=== PATIENT | female | born 1970 | race Caucasian/White ===

== ENCOUNTER 2018-03-21 14:00 | Emergency (ER) | payer OTHER ==
--- OUTSIDE RECORDS SUMMARY | 2018-03-21 14:05 | XMS REPORT | Continuity of Care Document ---
:1970 External Reference #:[id number] Author Name Manpreet Snyder MD Address [address] [place] [address] Care Team Providers Name Role Phone Emmett GOLDBERG, Sugar Care Team Information [employer] Unavailable Josiah Smith MD Primary Care Physician Unavailable Payers Type Date Identification Numbers Payment Provider Subscriber Policy Number: [id number] [employer] Dori Santamaria Group Number: [id number] Group Name: [id number] [place] [address] PayID: [id number] Advance Directives Description No Information Available Problems Date Description Provider Status Onset: 03/01/2018 Dizziness and giddiness Manpreet Snyder MD Active Onset: 03/01/2018 Tinnitus of right ear Manpreet Snyder MD Active Family History Date Family Member(s) Problem(s) Comments General Diabetes General Hearing Loss General Migraine General Thyroid Disease Father Diabetes Father Migraine Mother Diabetes Mother Hearing Loss Mother Thyroid Disease Social History Type Date Description Comments Sex Unknown Occupation Professor Tobacco Use Start: Unknown Never Smoked Cigarettes Tobacco Use Start: Unknown Never Smoked Cigars Tobacco Use Start: Unknown Never Smoked A Pipe Smokeless Tobacco Never Used Smokeless Tobacco ETOH Use Never consumed alcohol Allergies, Adverse Reactions, Alerts Description No Known Drug Allergies Medications Medication Date Status Form Strength Qnty SIG Indications Ordering Provider Doxycycline Active Tablets 100mg Josiah Smith MD Immunizations Description No Information Available Vital Signs Date Vital Result Comment 03/01/2018 2:32pm Weight 200.00 lb Weight 90.720 kg Height 67 inches 5'7" Height in cm's 170.2 cm BMI (Body Mass Index) 31.3 kg/m2 Results Description No Information Available Procedures Date Code Description Status 03/01/2018 49644 Tympanometry Completed 03/01/2018 47645 Comprehensive Audiogram Completed Encounters Type Date Location Provider Dx Diagnosis Office Visit 03/01/2018 [place] Manpreet Snyder H93.11 Tinnitus, right 2:15p 02/13/07 ear R42 Dizziness and giddiness Plan of Treatment 03/01/2018 - Manpreet Snyder MDH93.11 Tinnitus, right earComments:Patient with some symptoms of tinnitus without other focal etiology. No evidence of retrocochlear pathology. I suggested several different techniques to reduce the symptoms of of tinnitus. Includingmusic therapy, occasionally some low dose antidepressants are also helpful. Is not interested in medical management at this time but may return back if her symptoms worsen.R42 Dizziness and giddiness
[2018-03-21 14:12] VITALS: BP 145/88
--- NOTE | 2018-03-21 14:40 | UC ---
FLU HPI - HPI Summary HPI Summary: 47 y/o female presents to the urgent care c/o subjective low grade fever, nasal congestion with clear nasal discharge body aches and PLEITEZ since for the past 3 days. Symptoms this morning when she developed a burning dry cough. Pt states Hx of Lyme disease being managed by her PCP Dr Oglesby and taking Doxycycline for the past month. About 2 day she was Rx Cefdinir PO for the Lyme. However, Lyme serology was negative on 08/2017. Pain is mild /10. Pt has taken Tylenol PO to alleviate symptoms. Pt denies fever, SOB, dizziness, palpitations, cehst pain, abdominal pain, N/V/D f - History of Current Complaint Chief Complaint: UCGeneralIllness Stated Complaint: FLU-LIKE SYMPTOMS Time Seen by Provider: 03/21/18 14:38 Hx Obtained From: Patient Hx Last Menstrual Period: 03/21/18 Onset/Duration: Gradual Onset, Lasting Hours - 12 hrs Severity Currently: Mild Severity Initially: Mild Pain Intensity: 3 - body aches and PLEITEZ Pain Scale Used: 0-10 Numeric Associated Signs & Symptoms: Positive: Negative, Myalgia, Cough - dry, Sore Throat - mild, Nasal Congestion - clear, Headache. Negative: Fever - Risk Factors Influenza Risk Factors: Negative - Allergy/Home Medications Allergies/Adverse Reactions: Allergies Allergy/AdvReac Type Severity Reaction Status Date / Time latex Allergy Itching Verified 03/21/18 14:13 Home Medications: Home Medications Butalbital/Acetaminophen [Butalbital-Acetaminophn 50-325] 1 tab PO DAILY [History Confirmed 03/21/18] Cefdinir [Cefdinir 300 MG CAP] 300 mg PO DAILY 03/21/18 [History Confirmed 03/21] DOXYcycline CAP(*) [DOXYcycline 100MG CAP(*)] 100 mg PO BID 03/21/18 [History Confirmed 03/21/18] PMH/Surg Hx/FS Hx/Imm Hx Previously Healthy: Yes Endocrine History: Diabetes - Diet controlled Other Endocrine History: lyme Other History Of: Negative For: Anticoagulant Therapy - Surgical History Surgical History: Yes Surgery Procedure, Year, and Place: right knee scopy, right ankle sx, ovarian cyst removal, ovarian fibroid removal, "endometriosis removal" - Family History Known Family History: Positive: Cardiac Disease - Social History Occupation: Employed Full-time Lives: With Family Alcohol Use: None Substance Use Type: None Smoking Status (MU): Never Smoked Tobacco Have You Smoked in the Last Year: No Review of Systems All Other Systems Reviewed And Are Negative: Yes Constitutional: Positive: Chills, Fatigue, Other - body aches Skin: Positive: Negative Eyes: Positive: Negative ENT: Positive: Sore Throat - mild, Nasal Discharge - clear, Sinus Congestion Respiratory: Positive: Cough - dry burning Cardiovascular: Positive: Negative Gastrointestinal: Positive: Negative Genitourinary: Positive: Negative Motor: Positive: Negative Neurovascular: Positive: Negative Musculoskeletal: Positive: Myalgia Neurological: Positive: Headache Psychological: Positive: Negative Is Patient Immunocompromised?: No Physical Exam - Summary Physical Exam Summary: VITAL SIGNS: Reviewed. GENERAL: Patient is a well developed and nourished obese female who is sitting comfortable in the examining table. Patient is not in any acute respiratory distress. HEAD AND FACE: No signs of trauma. No ecchymosis, hematomas or skull depressions. No sinus tenderness. EYES: PERRLA, EOMI x 2, No injected conjunctiva, no nystagmus. No photophobia. EARS: Hearing grossly intact. Ear canals and tympanic membranes are within normal limits. Nose: edematous and erythematous nasal mucosa w/ clear nasal discharge. MOUTH: Positive no erythema, no tonsillar enlargement. Uvula in midline. NECK: Supple, trachea is midline, Positive anterior cervical lymphadenopathy, no JVD, no carotid bruit, no c-spine tenderness, neck with full ROM. No meningeal signs, no Kernig's or brudzinskis signs. CHEST: Symmetric, no tenderness at palpation LUNGS: Clear to auscultation bilaterally. No wheezing or crackles. CVS: Regular rate and rhythm, S1 and S2 present, no murmurs or gallops appreciated. ABDOMEN: Soft, non-tender. No signs of distention. No rebound no guarding, and no masses palpated. Bowel sounds are normal. EXTREMITIES: FROM in all major joints, no edema, no cyanosis or clubbing. NEURO: Alert and oriented x 3. No acute neurological deficits. Speech is normal and follows commands. SKIN: Dry and warm Triage Information Reviewed: Yes Vital Signs: Initial Vital Signs Temp 98.2 F 03/21/18 14:09 Pulse 106 02/06/19 14:09 Resp 17 03/21/18 14:09 BP 145/88 03/21/18 14:09 Pulse Ox 98 03/21/18 14:09 Flu Course/Dx - Course Course Of Treatment: 47 y/o female presents to the urgent care c/o subjective low grade fever, nasal congestion with clear nasal discharge body aches and PLEITEZ since for the past 3 days. Symptoms this morning when she developed a burning dry cough. Pt states Hx of Lyme disease being managed by her PCP Dr Oglesby and taking Doxycycline for the past month. About 2 day she was Rx Cefdinir PO for the Lyme. However, Lyme serology was negative on 08/2017. Pain is mild 04/22. Pt has taken Tylenol PO to alleviate symptoms. Pt denies fever, SOB, dizziness, palpitations, cehst pain, abdominal pain, N/V/D. Hx obtained. Pt w/ URI on examination. Influenza A&B ordered: result: negative. Pt advised to continue taking Tylenol PO to alleviates symptoms. Advised on hand washing. Pt advised to rest, increase fluid intake, eat well and avoid strenuous exercise. If symptoms do not improve or worsen advised to return to the urgent care or f/u with her PCP for further evaluation and treatment. Pt strongly advised to f/u w / Dr Forde who specializes on Lyme for a consultation. Pt's BP is elevated today advised to decrease salt in diet, monitor BP and f/u with PCP for further management. Pt understood and agreed with plan of care. - Differential Dx/Diagnosis Differential Diagnosis/HQI/PQRI: Bronchitis, Influenza, Upper Respiratory Infection Provider Diagnosis: Viral syndrome, Elevated BP without diagnosis of hypertension Discharge - Sign-Out/Discharge Documenting (check all that apply): Patient Departure - D/c home All imaging exams completed and their final reports reviewed: No Studies - Discharge Plan Condition: Stable Disposition: HOME Patient Education Materials: Viral Syndrome (ED) Referrals: Josiah Smith MD [Primary Care Provider] - 3 Days Shubham CALHOUN,Prashanth Knight [Medical Doctor] - If Needed Additional Instructions: 1-Please continue taking Tylenol PO q6-8hrs prn as instructed after meals to alleviate fever, and sore throat. Increase fluid intake, eat well, rest and avoid strenuous exercise 2-If symptoms do not improve or worsen please return to the urgent care or f/u with your PCP in 2 days for further evaluation and treatment. 3-Please make an appt with Dr Forde who specialize for a consultation on your Lyme disease 4- Your BP is elevated today. please decrease salt in your diet, monitor BP and if it continues to be elevated please f/u with your PCP for further management. - Billing Disposition and Condition Condition: STABLE Disposition: Home
[2018-03-21 14:52] LABS: Influenza A Molecular NEGATIVE (Negative); Influenza B Molecular NEGATIVE (Negative)
== END 2018-03-21 15:15 | disposition home or self-care (01) ==
LOC: UCEAST 14:00
DX: B34.9 Viral infection, unspecified (principal); Z91.040 Latex allergy status; A69.20 Lyme disease, unspecified; R03.0 Elevated blood-pressure reading, without diagnosis of hypertension; E11.9 Type 2 diabetes mellitus without complications
CPT/HCPCS: 99211; G0463

== ENCOUNTER 2019-03-28 14:04 | Emergency (ER) | payer SELFPAY ==
--- OUTSIDE RECORDS SUMMARY | 2019-03-28 14:15 | XMS REPORT | Continuity of Care Document ---
:1970 External Reference #:[id number] Author Name Sacha Trujillo M.D. (transmitted by agent of provider Edelmira Herr) Address [address] [place] [address] Care Team Providers Name Role Phone Josiah Smith MD - Family Medicine Care Team Information Veterans Service Representative Problems Description No Information Available Social History Type Date Description Comments Sex Unknown ETOH Use Denies alcohol use Tobacco Use Start: Unknown Patient has never smoked Recreational Drug Use Denies Drug Use Smoking Status Reviewed: 02/04/19 Patient has never smoked Exercise Type/Frequency Exercises rarely Allergies, Adverse Reactions, Alerts Description No Known Drug Allergies Medications Active Medications SIG Qnty Indications Ordering Date Provider CBD Oil 1 drop orally one Unknown 10/16/2018 to two times daily as needed Aspirin take 1 by every 6 Unknown 10/16/2018 325mg Tablets hours for pain by mouth daily as needed Ventolin HFA 1 to 2 8gm Sacha Trujillo, 10/09/2018 108(90Base) inhalations every M.D. mcg/Act Aerosol 4 hours as needed D3 Super Strength take one 90caps Sacha Trujillo, 10/07/2018 2000Unit capsule/tablet M.D. Capsules daily by mouth Zyflamend Sacha Trujillo, 09/10/2018 Rod.DMilly Emulsified Oregano Unknown Hydroxychloroquine Take One Tablet Unknown Sulfate By Mouth Twice A 200mg Tablets Day Propranolol HCL 1 tab by mouth Unknown 10mg Tablets twice daily Duloxetine HCL Deanne Shepard, 30mg Caps DR Tavera Part Metalipoate Unknown Taurine Unknown 500mg Capsules Immunizations Description No Information Available Vital Signs Date Vital Result Comment 02/04/2019 11:40am Height 67 inches 5'7" Weight 189.38 lb Heart Rate 77 /min BP Systolic Sitting 114 mmHg BP Diastolic Sitting 80 mmHg Body Temperature 98.5 F Pain Level 1 O2 % BldC Oximetry 96 % BMI (Body Mass Index) 29.7 kg/m2 11/13/2018 1:12pm Height 67 inches 5'7" Weight 189.00 lb with shoes BP Systolic Sitting 121 mmHg R arm BP Diastolic Sitting 81 mmHg R arm O2 % BldC Oximetry 97 % BMI (Body Mass Index) 29.6 kg/m2 Results Test Acquired Date Facility Test Result H/L Range Note Neph Routine 11/05/2018 [facility] Total Protein 12 mg/dL [address] [place] [address] [phone] Creatinine Random Urine 195.72 mg/dL CBC Auto 11/05/2018 [facility] White Blood 9.0 10^3/uL Normal 3.5-10.[address] [place] [address] [phone] Red Blood Count 4.71 10^6/uL Normal 3.70-4.87 Hemoglobin 13.2 g/dL Normal 12.0-16.0 Hematocrit 39 % Normal 35-47 Mean Corpuscular Volume 82 fL Normal 80-97 Mean Corpuscular Hemoglobin 28 pg Normal 27-31 Mean Corpuscular HGB Conc 34 g/dL Normal 31-36 Red Cell Distribution Width 13 % Normal 10-15 Platelet Count 228 10^3/uL Normal 150-450 Mean Platelet Volume 9.2 fL Normal 7.4-10.4 Abs Neutrophils 6.2 10^3/uL Normal 1.5-7.7 Abs Lymphocytes 2.1 10^3/uL Normal 1.0-4.8 Abs Monocytes 0.6 10^3/uL Normal 0-0.8 Abs Eosinophils 0.1 10^3/uL Normal 0-0.6 Abs Basophils 0.0 10^3/uL Normal 0-0.2 Abs Nucleated RBC 0.0 10^3/uL Granulocyte % 68.7 % Lymphocyte % 23.6 % Monocyte % 6.6 % Eosinophil % 0.8 % Basophil % 0.3 % Nucleated Red Blood Cells % 0.0 Urinalysis Profile 11/05/2018 [facility] Urine Color Yellow [address] [place] [address] [phone] Urine Appearance Cloudy Urine Specific [place] 1.027 Normal 1.010-1.030 Urine pH 6.0 Normal 5-9 Urine Urobilinogen Negative Negative Urine Ketones Negative Negative Urine Protein Negative Negative Urine Leukocytes Negative Negative Urine Blood Negative Negative Urine Nitrite Negative Negative Urine Bilirubin Negative Negative Urine Glucose Negative Negative Basic Metabolic 11/05/2018 [facility] Sodium 137 mmol/L Normal 135-145 Panel [address] [place] [address] [phone] Potassium 3.9 mmol/L Normal 3.5-5.0 Chloride 103 mmol/L Normal 101-111 Co2 Carbon Dioxide 27 mmol/L Normal 22-32 Anion Gap 7 mmol/L Normal 2-11 Glucose 100 mg/dL Normal 70-100 Blood Urea Nitrogen 16 mg/dL Normal 6-24 Creatinine 0.97 mg/dL High 0.51-0.95 BUN/Creatinine Ratio 16.5 Normal 8-20 Calcium 9.2 mg/dL Normal 8.6-10.3 Egfr Non- 61.0 >60 Egfr 73.9 >60 1 Laboratory test 11/05/2018 [facility] Myeloperoxidase AB 3.6 U Abnormal 2 [place] [address] [phone] Proteinase 3 <0.2 U 3 Anca Panel For 11/05/2018 [facility] Myeloperoxidase AB 3.7 U High 4 Vasculitis [address] [place] [address] [phone] Proteinase 3 AB < 0.2 U 5 Neutrophil Cytoplasmic 11/05/2018 [facility] C-Anca Negative Negative AB [address] [place] [address] [phone] P-Anca Negative Negative 6 Laboratory test 11/05/2018 [facility] Anti Nuclear 0.6 U 7 finding [facility] [place] [address] [phone] Nuclear AB (Tasia) 11/05/2018 [facility] Nuclear Ab Positive Abnormal 8 By Ifa Igg 101 [facility] (Tasia) by Ifa, 1:160 [place] [address] IgG [phone] Tasia Titer: 1:160 Tasia Pattern: Dense Fine Speck <SEE NOTE> 9 Laboratory test 11/05/2018 [facility] Histone <0.5 U 10 finding 101 [facility] [place] [address] [phone] Basic Metabolic 10/26/2018 [facility] Sodium 138 Normal 135-1 Panel 101 [facility] mmol/L [address] [place] [address] [phone] Potassium 4.0 mmol/L Normal 3.5-5.0 Chloride 104 mmol/L Normal 101-111 Co2 Carbon Dioxide 28 mmol/L Normal 22-32 Anion Gap 6 mmol/L Normal 2-11 Glucose 107 mg/dL High 70-100 Blood Urea Nitrogen 10 mg/dL Normal 6-24 Creatinine 0.89 mg/dL Normal 0.51-0.95 BUN/Creatinine Ratio 11.2 Normal 8-20 Calcium 9.4 mg/dL Normal 8.6-10.3 Egfr Non- 67.4 >60 Egfr 81.6 >60 11 Laboratory test 10/26/2018 [facility] C Reactive 1.51 mg/L Normal <8.01 finding [facility] [place] [address] [phone] Erythrocyte Sed Rate 3 mm/Hr Normal 0-19 Urine Culture 10/12/2018 [facility] Urine Culture SEE [address] [place] [address] BELOW [phone] Laboratory test 10/12/2018 [facility] Myeloperoxidase AB 3.9 U Abnormal [address] [place] [address] [phone] Proteinase 3 <0.2 U 14 Urinalysis Profile 10/12/2018 [facility] [place] [address] [phone] Urine Appearance Cloudy Urine Specific [place] 1.015 Normal 1.010-1.030 Urine pH 5.0 Normal 5-9 Urine Urobilinogen Negative Negative Urine Ketones Negative Negative Urine Protein Negative Negative Urine Leukocytes Negative Negative Urine Blood 2+ Abnormal Negative Urine Nitrite Negative Negative Urine Bilirubin Negative Negative Urine Glucose Negative Negative Urine White Blood Cell Trace(0-5/hpf) Absent Urine Red Blood Cell Absent Absent Urine Bacteria Absent Absent Urine Squamous Epithelial Cell Present Abnormal Absent Basic Metabolic 10/12/2018 [facility] Sodium 138 mmol/L Normal 135-145 Panel [address] [place] [address] [phone] Potassium 4.0 mmol/L Normal 3.5-5.0 Chloride 104 mmol/L Normal 101-111 Co2 Carbon Dioxide 27 mmol/L Normal 22-32 Anion Gap 7 mmol/L Normal 2-11 Glucose 86 mg/dL Normal 70-100 Blood Urea Nitrogen 10 mg/dL Normal 6-24 Creatinine 0.88 mg/dL Normal 0.51-0.95 BUN/Creatinine Ratio 11.4 Normal 8-20 Calcium 9.7 mg/dL Normal 8.6-10.3 Egfr Non- 68.3 >60 Egfr 82.6 >60 15 Laboratory test 09/10/2018 [facility] Vitamin D 19.1 ng/mL Low 20-50 [address] Total 25(Oh) [place] [address] [phone] Celiac Hla 09/10/2018 [facility] [id number] SEE BELOW [address] [place] [address] [phone] [id number] SEE BELOW 18 Celiac Gene Pairs Present? Equivocal Celiac Gene Interpretation See Comment 19 Celiac Panel 09/10/2018 [facility] Tissue Transglutaminase <1.2 U/mL [address] [place] [address] [phone] Immunoglobulin A 252 mg/dL 61 - 356 Celiac Interpretation See Comment 21 CBC Auto 09/10/2018 [facility] White Blood 7.5 10^3/uL Normal 3.5-10.[address] [place] [address] [phone] Red Blood Count 4.96 10^6/uL High 3.70-4.87 Hemoglobin 13.9 g/dL Normal 12.0-16.0 Hematocrit 40 % Normal 35-47 Mean Corpuscular Volume 81 fL Normal 80-97 Mean Corpuscular Hemoglobin 28 pg Normal 27-31 Mean Corpuscular HGB Conc 35 g/dL Normal 31-36 Red Cell Distribution Width 14 % Normal 10-15 Platelet Count 212 10^3/uL Normal 150-450 Mean Platelet Volume 9.5 fL Normal 7.4-10.4 Abs Neutrophils 4.9 10^3/uL Normal 1.5-7.7 Abs Lymphocytes 2.0 10^3/uL Normal 1.0-4.8 Abs Monocytes 0.4 10^3/uL Normal 0-0.8 Abs Eosinophils 0.1 10^3/uL Normal 0-0.6 Abs Basophils 0.0 10^3/uL Normal 0-0.2 Abs Nucleated RBC 0.0 10^3/uL Granulocyte % 66.2 % Lymphocyte % 26.8 % Monocyte % 5.7 % Eosinophil % 1.2 % Basophil % 0.1 % Nucleated Red Blood Cells % 0.0 Laboratory test 09/10/2018 [facility] Free Cortisol 0.224 g/ dL [address] [place] [address] [phone] T3 Free 3.00 pg/mL Normal 2.5-3.9 23 Vitamin B6 09/10/2018 [facility] Pyridoxal 5-Phosphate 18 g/L 5-50 24 [address] [place] [address] [phone] Pyridoxic Acid 9 g/L 3-30 25 Vitamin B12 09/10/2018 [facility] Vitamin B12 677 pg/mL Normal 180-914 26 And Folate [facility] [place] [address] [phone] Folic Acid (Folate) > 20.00 ng/mL >3.99 27 Tick-Borne Panel 09/10/2018 [facility] Babesia Negative Negative PCR Blood 101 [facility] [place] [place] [address] [phone] Babesia ducani Negative Negative Babesia divergens/Mo-1 Negative Negative 28 Anaplasma phagocytophilum Negative Negative Ehrlichia chaffeensis Negative Negative Ehrlichia ewingii/canis Negative Negative Ehrlichia muris eauclairensis Negative Negative 29 B. miyamotoi PCR, B Negative Negative 30 Lyme Disease AB 09/10/2018 [facility] IgG Immunoblot Negative [place] [address] [phone] IgG detected against None kDa IgM Immunoblot Negative Negative IgM detected against None kDa Lyme Disease Interpretation See Comment 31 Cardiolipin 09/10/2018 [facility] Phospholipid Ab < 9.4 MPL 32 Igg/Igm [facility] IgM, [place] [address] [phone] Phospholipid Ab IgG < 9.4 GPL 33 Nuclear AB 09/10/2018 [facility] Nuclear Ab Positive 1:320 Abnormal 34 (Tasia) By [address] (Tasia) by Ifa, [place] [address] IgG [phone] Tasia Titer: 1:320 Tasia Pattern: Dense Fine Speck <SEE NOTE> 35 Laboratory test 09/10/2018 [facility] Anti Double <12.3 IU/mL [address] [place] [address] [phone] Complement C3 118 mg/dL 75 - 175 37 Complement C4 22 mg/dL 14 - 40 38 Jane Igg AB Reflex 09/10/2018 [facility] SS-A/Ro Antibody <0.2 U [address] [place], [place] [address] [phone] SS-B/La Antibody <0.2 U 40 Sm (Soler) IgG Antibody <0.2 U 41 ENTRY LEVEL MARKETING REPRESENTATIVE Antibody, IgG <0.2 U 42 Scl-70 (Scleroderma) Antibody <0.2 U 43 Aubree-1 Antibody <0.2 U 44 Anca AB Ser If 09/10/2018 [facility] C-Anca Negative Negative [address] [place] [address] [phone] P-Anca Positive Abnormal Negative 45 Laboratory test 09/10/2018 [facility] Creatine 116 Normal 10- 223 46 finding 101 [facility] Kinase(CK) U/[place] [address] [phone] Immunoglobulins 09/10/2018 [facility] Immunoglobulin G 1090 767 - 47 Serum Quant 101 [facility] mg/dL [address] [place] [address] [phone] Immunoglobulin M 73 mg/dL 37 - 286 Immunoglobulin A 238 mg/dL 61 - 356 1 Because ethnic data is not always readily available, this report includes an eGFR for both -Americans and non- Americans. The National Kidney Disease Education Program (NKDEP) does not endorse the use of the MDRD equation for patients that are not between the ages of 18 and 70, are , have extremes of body size, muscle mass, or nutritional status, or are non- or non-. According to the National Kidney Foundation, irrespective of diagnosis, the stage of the disease is based on the level of kidney function: Stage Description GFR(mL/min/1.73 m(2)) 1 Kidney damage with normal or decreased GFR 90 2 Kidney damage with mild decrease in GFR 60-89 3 Moderate decrease in GFR 30-59 4 Severe decrease in GFR 15-29 5 Kidney failure <15 (or dialysis) 2 Interpretation: Positive (>=1.0) REFERENCE VALUE <0.4 (Negative) Test Performed by: [facility] [place] [address] Tile Fitter: Oli Marcos M.D. Ph.D.; CLIA# [id number] 3 REFERENCE VALUE <0.4 (Negative) Test Performed by: [facility] [place] [address] Tile Fitter: Oli Marcos M.D. Ph.D.; CLIA# [id number] 4 Interpretation: Positive (>=1.0) REFERENCE VALUE <0.4 (Negative) 5 REFERENCE VALUE <0.4 (Negative) Test Performed by: [place] [address] Tile Fitter: Oli Marcos M.D. Ph.D.; CLIA# [id number] 6 Positive for anti-MPO antibody by solid-phase immunoassay. Neither cANCA nor pANCA patterns identified by immunofluorescence using ethanol-fixed neutrophils. Discrepancy between results may reflect differences in sensitivities of methods for lower-titer antibodies. Unable to provide further interpretation without clinical information. Correlation with clinical presentation recommended. ADDITIONAL INFORMATION This test was developed and its performance characteristics determined by [facility] in a manner consistent with CLIA requirements. This test has not been cleared or approved by the U.S. Food and Drug Administration. Test Performed by: [facility] [place] [address] Tile Fitter: Oli Marcos M.D. Ph.D.; CLIA# [id number] 7 REFERENCE VALUE <=1.0 (Negative) Test Performed by: [facility] [place] [address] Tile Fitter: Oli Marcos M.D. Ph.D.; CLIA# [id number] 8 REFERENCE VALUE <1:80 (Negative) 9 Dense Fine Speckled Test Performed by: [facility] [place] [address] Tile Fitter: Oli Marcos M.D. Ph.D.; CLIA# [id number] 10 REFERENCE VALUE <1.0 (Negative) Test Performed by: [place] [address] Tile Fitter: Oli Marcos M.D. Ph.D.; CLIA# [id number] 11 Because ethnic data is not always readily available, this report includes an eGFR for both -Americans and non- Americans. The National Kidney Disease Education Program (NKDEP) does not endorse the use of the MDRD equation for patients that are not between the ages of 18 and 70, are , have extremes of body size, muscle mass, or nutritional status, or are non- or non-. According to the National Kidney Foundation, irrespective of diagnosis, the stage of the disease is based on the level of kidney function: Stage Description GFR(mL/min/1.73 m(2)) 1 Kidney damage with normal or decreased GFR 90 2 Kidney damage with mild decrease in GFR 60-89 3 Moderate decrease in GFR 30-59 4 Severe decrease in GFR 15-29 5 Kidney failure <15 (or dialysis) 12 SEE RESULT BELOW Name: BROOKE SANTAMARIA : [address]: Sacha Trujillo MD Acct: [id number] Unit: [id number] AGE: 48 Location: LAB Re10/12/18 SEX: F Status: REG REF SPEC: [id number] [place]: 10/12/18-[address] [facility] [address]: Sacha Trujillo MD REQ: [id number] RECD: [id number] STATUS: COMP _ SOURCE: URINE SPDESC: ORDERED: Urine Culture Procedure Result Reported Site Urine Culture Final 10/13/18- 1224 ML No Growth (<1,000 CFU/mL) * ML - Main Lab . END OF REPORT DEPARTMENT OF PATHOLOGY, [address] [place] [address] Henrry Han M.D. Director [facility] # [id number] Interpretation: Positive (>=1.0) REFERENCE VALUE <0.4 (Negative) Test Performed by: [facility] - [address] [address] 14 REFERENCE VALUE <0.4 (Negative) Test Performed by: [place] [address] 15 Because ethnic data is not always readily available, this report includes an eGFR for both -Americans and non- Americans. The National Kidney Disease Education Program (NKDEP) does not endorse the use of the MDRD equation for patients that are not between the ages of 18 and 70, are , have extremes of body size, muscle mass, or nutritional status, or are non- or non-. According to the National Kidney Foundation, irrespective of diagnosis, the stage of the disease is based on the level of kidney function: Stage Description GFR(mL/min/1.73 m(2)) 1 Kidney damage with normal or decreased GFR 90 2 Kidney damage with mild decrease in GFR 60-89 3 Moderate decrease in GFR 30-59 4 Severe decrease in GFR 15-29 5 Kidney failure <15 (or dialysis) 16 Total 25-Hydroxyvitamin D2 and D3 (25-OH-VitD) <10 ng/mL (severe deficiency) 10-19 ng/mL (mild to moderate deficiency) 20-50 ng/mL (optimum levels) 51-80 ng/mL (increased risk of hypercalciuria) >80 ng/mL (toxicity possible) 17 RESULT: 01:02,02:01 REFERENCE VALUE Not Applicable 18 RESULT: 02:02,06:02 DQ Serologic Equivalent: 2,6 REFERENCE VALUE Not Applicable 19 While the patient lacks the gene pairs usually seen in celiac disease, there are rare exceptions in which celiac disease can occur with only one half of the gene pair (1% of all celiac) making celiac disease very unlikely. However, these genes can also be present in the normal population. ADDITIONAL INFORMATION Method: Molecular typing of HLA antigens performed using reverse SSOP and/or SSP methods, reported as serological equivalents and low to medium resolution molecular values. Performing Laboratory CLIA# [id number] Test Performed by: [address] [address] 20 REFERENCE VALUE <4.0 (Negative) Test Performed by: [facility] [place] [address] 21 Negative serology. Celiac disease unlikely. However, approximately 10% of patients with celiac disease are seronegative. Also, patients who are already adhering to a gluten-free diet may be seronegative. If celiac disease is highly clinically suspected, consider HLA-DQ typing. Test Performed by: [facility] [place] [address] 22 REFERENCE VALUE 6:00-10:30 AM Collection 0.121-1.065 mcg/dL ADDITIONAL INFORMATION This test was developed and its performance characteristics determined by [facility] in a manner consistent with CLIA requirements. This test has not been cleared or approved by the U.S. Food and Drug Administration. Test Performed by: [facility] [place] [address] 23 Please check labs this week 24 ADDITIONAL INFORMATION This test was developed and its performance characteristics determined by [facility] in a manner consistent with CLIA requirements. This test has not been cleared or approved by the U.S. Food and Drug Administration. 25 ADDITIONAL INFORMATION This test was developed and its performance characteristics determined by [facility] in a manner consistent with CLIA requirements. This test has not been cleared or approved by the U.S. Food and Drug Administration. Test Performed by: [facility] [place] [address] 26 Normal Range 180 to 914 Indeterminate Range 145 to 180 Deficient Range <145 27 Please check labs this week ADDITIONAL INFORMATION This test was developed and its performance characteristics determined by [facility] in a manner consistent with CLIA requirements. This test has not been cleared or approved by the U.S. Food and Drug Administration. 29 ADDITIONAL INFORMATION This test was developed and its performance characteristics determined by [facility] in a manner consistent with CLIA requirements. This test has not been cleared or approved by the U.S. Food and Drug Administration. 30 ADDITIONAL INFORMATION This test was developed and its performance characteristics determined by [facility] in a manner consistent with CLIA requirements. This test has not been cleared or approved by the U.S. Food and Drug Administration. Test Performed by: [facility] - [address] [address] 31 Specific serologic response to B. burgdorferi infection is not detected, but cannot rule out early infection during which low or undetectable antibody levels to B. burgdorferi may be present. If clinically indicated, a new serum specimen should be submitted in 7-14 days. ADDITIONAL INFORMATION Per CDC criteria, the Lyme IgG Immunoblot is interpreted as positive if IgG-class antibodies are detected to >=5 B. burgdorferi proteins, and the Lyme IgM Immunoblot is interpreted as positive if IgM-class antibodies are detected to >=2 B. burgdorferi proteins. Immunoblot patterns not meeting these criteria should not be interpreted as positive. Epitopes from certain B. burgdorferi proteins (e.g., p41) are conserved across other bacteria, which may lead to the detection of IgM- and/or IgG-class antibodies on the Lyme disease immunoblots in patients without Lyme disease. Immunoblot should only be ordered on specimens that are positive or equivocal by a FDA-licensed Lyme disease antibody screening test (e.g., EIA). Results of the Lyme IgM immunoblot should not be considered in patients with >= 30 days of symptoms. Test Performed by: [facility] [place] [address] 32 REFERENCE VALUE <15.0 (Negative) 33 REFERENCE VALUE <15.0 (Negative) Test Performed by: [facility] [place] [address] 34 REFERENCE VALUE <1:80 (Negative) 35 Dense Fine Speckled Test Performed by: [facility] [place] [address] 36 REFERENCE VALUE <30.0 (Negative) Test Performed by: [place] [address] 37 Test Performed by: [facility] [place] [address] 38 Test Performed by: [facility] - [address] [address] 39 REFERENCE VALUE <1.0 (Negative) 40 REFERENCE VALUE <1.0 (Negative) 41 REFERENCE VALUE <1.0 (Negative) 42 REFERENCE VALUE <1.0 (Negative) 43 REFERENCE VALUE <1.0 (Negative) 44 REFERENCE VALUE <1.0 (Negative) Test Performed by: [place] [address] 45 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 Suggest further testing for anti-myeloperoxidase (anti-MPO) antibodies, if clinically indicated. ADDITIONAL INFORMATION This test was developed and its performance characteristics determined by [facility] in a manner consistent with CLIA requirements. This test has not been cleared or approved by the U.S. Food and Drug Administration. Test Performed by: [place] [address] 46 Please check labs this week 47 Test Performed by: [place] [address] Procedures Description No Information Available Medical Devices Description No Information Available Encounters Type Date Location Provider Dx Diagnosis Office Visit 11/13/2018 [facility] Nephrology Mabel Anders, R76.0 Raised antibody 1:00p titer M35.9 Systemic involvement of connective tissue, unspecified Z79.899 Other m[facility] (current) drug therapy Office Visit 10/26/2018 1:15p [facility] Dermatology Xochitl Beasley, L82.1 Other seborrheic MD keratosis L73.8 Other specified follicular disorders D23.71 Oth benign neoplasm skin/ right lower limb, including hip Office Visit 10/23/2018 1:00p [facility] Nephrology Mabel Anders, R53.83 Other fatigue MD M35.9 Systemic involvement of connective tissue, unspecified M79.10 Myalgia, unspecified site R06.00 Dyspnea, unspecified Z79.899 Other mcc (current) drug therapy Office Visit 10/09/2018 11:40a Rheumatology Sacha M35.9 [facility] Judy Trujillo M.D. involvement of connective tissue, unspecified Z79.899 Other termite treater (current) drug therapy D69.2 Other nonthrombocytopenic purpura R06.00 Dyspnea, unspecified Office Visit 09/10/2018 10:00a Rheumatology Sacha M79.10 Myalgia, Services Of Judy Trujillo M.D. unspecified site D69.2 Other nonthrombocytopenic purpura R53.83 Other fatigue R20.8 Other disturbances of skin sensation S40.261A Insect bite (nonvenomous) of right shoulder, init encntr R76.0 Raised antibody titer Assessments Date Code Description Provider 02/04/2019 M35.9 Systemic involvement of connective tissue, Sacha Trujillo M.D. unspecified 02/04/2019 Z79.899 Other mcc (current) drug therapy Sacha Trujillo M.D. 02/04/2019 R73.9 Hyperglycemia, unspecified Sacha Trujillo M.D. 02/04/2019 R20.8 Other disturbances of skin sensation Sacha Trujillo M.D. 02/04/2019 E55.9 Vitamin D deficiency, unspecified Sacha Trujillo M.D. 11/13/2018 R76.0 Raised antibody titer Mabel Anders MD 11/13/2018 M35.9 Systemic involvement of connective tissue, Mabel Anders MD unspecified 11/13/2018 Z79.899 Other termite treater (current) drug therapy Mabel Anders MD 10/26/2018 L82.1 Other seborrheic keratosis Xochilt Beasley MD 10/26/2018 L73.8 Other specified follicular disorders Xochilt Beasley MD 10/26/2018 D23.71 Other benign neoplasm of skin of right Xochilt Beasley MD lower limb, including hip 10/23/2018 R53.83 Other fatigue Mabel Anders MD 10/23/2018 M35.9 Systemic involvement of connective tissue, Mabel Anders MD unspecified 10/23/2018 M79.10 Myalgia, unspecified site Mabel Anders MD 10/23/2018 R06.00 Dyspnea, unspecified Mabel Anders MD 10/23/2018 Z79.899 Other termite treater (current) drug therapy Mabel Anders MD 10/09/2018 M35.9 Systemic involvement of connective tissue, Sacha Trujillo M.D. unspecified 10/09/2018 Z79.899 Other termite treater (current) drug therapy Sacha Trujillo M.D. 10/09/2018 D69.2 Other nonthrombocytopenic purpura Sacha Trujillo M.D. 10/09/2018 R06.00 Dyspnea, unspecified Sacha Trujillo M.D. 09/10/2018 M79.10 Myalgia, unspecified site Sacha Trujillo M.D. 09/10/2018 D69.2 Other nonthrombocytopenic purpura Sacha Trujillo M.D. 09/10/2018 R53.83 Other fatigue Sacha Trujillo M.D. 09/10/2018 R20.8 Other disturbances of skin sensation Sacha Trujillo M.D. 09/10/2018 S40.261A Insect bite (nonvenomous) of right Sacha Trujillo M.D. shoulder, initial encount 09/10/2018 R76.0 Raised antibody titer Sacha Trujillo M.D. Plan of Treatment Future Appointment(s):06/21/2019 11:20 am - Sacha Trujillo M.D. at [facility]02/14/2019 1:00 pm - Mabel Anders MD at [facility] Uwpkhvhchr39/ 23/2019 - Sacha Trujillo M.D.M35.9 Systemic involvement of connective tissue, pdwgyojsarwA42.899 Other termite treater (current) drug opskibmP35.9 Hyperglycemia, rfmgtgjsiqfM96.8 Other disturbances of skin bowzcyqneS77.9 Vitamin D deficiency , unspecifiedFollow up:Follow up in 4 to 5 months or sooner if needed Functional Status Description No Information Available Mental Status Description No Information Available Referrals Refer to Dr Reason for Referral Status Appt Date [facility] To evaluate for vasculitis, please Sent refer patient to [facility] Dr. Fallon Dean [phone] [id number] [facility] [place] [address] [phone] July El MD Please evaluate patient for nephritis, Sent 2018 history of hematuria and positive MPO antibody [address] [facility] [address] [phone] Xochilt Beasley MD Please evaluate and screen for vasculitis; Sent 2018 history of positive P ANCA and skin lesions [address] [facility], [place] [address] [phone]
--- OUTSIDE RECORDS SUMMARY | 2019-03-28 14:15 | XMS REPORT | Summary of Care ---
:1970 Author Organization [facility] Address [address] [place] [address] Care Team Providers Name Role Phone Josiah Smith MD Primary Care Provider Reason for Visit Reason Comments Follow-up Encounter Details Date Type Department Care Team Description 01/29/2019 Office Visit [facility] Neurology at Deanne Shepard MD Migraine aura without headache (Primary Dx); [address] Tremor; Center 4th Floor [address] Bilateral numbness and tingling of arms and legs; [address] [place] [address] Visual disturbance 4th Floor, [address] [address] [place], [place] [phone] [address] [phone] Allergies Active Allergy Reactions Severity Noted Date Comments Latex Itching 12/11/2013 documented as of this encounter (statuses as of 01/29/2019) Medications Medication Sig Dispensed Refills Start End Status Date Date aspirin 81 MG chewable Chew 81 mg by 0 Active tablet Mouth as needed ACETAMINOPHEN-BUTALBIT Take 1-2 0 Active AL 50-325 MG TABS tablets by mouth as needed hydroxychloroquine Take 200 mg by 0 Active (PLAQUENIL) 200 MG mouth Two tablet Times Daily acetaminophen, Take 650 mg by 0 Active TYLENOL, tablet 325 MG mouth as tablet needed UNABLE TO FIND Take 1 tablet 0 Active by mouth daily ADP- herbal supplement TAURINE PO Take 1 tablet 0 Active by mouth daily UNABLE TO FIND Take 1 tablet 0 Active by mouth daily [place] Lipoate Albuterol Sulfate HFA Inhale 1 puff 3 10/10/19 Active 108 (90 Base) MCG/ACT into the lungs 19 Inhalation Aerosol as needed Solution (PROVENTIL HFA;VENTOLIN HFA) Multivitamin Adult Chew 1 tablet 0 Active Oral Tablet Chewable by Mouth daily VITAMIN D, Take 1 tablet 0 Active CHOLECALCIFEROL, PO by mouth daily DULoxetine HCl 30 MG Take 1 capsule 30 capsule 11 01/30/20 Active Oral Capsule Delayed by mouth daily 19 020 Release Particles (CYMBALTA)Indications: Migraine aura without headache Propranolol HCl 20 MG Take 1 tablet 60 tablet 6 01/30/20 Active Oral Tablet by mouth Two 19 020 (INDERAL)Indications: Times Daily Migraine aura without headache, Tremor Vit-Fe Take by 0 Discontinued Fumarate-FA ( mouth. 019 PO) propylthiouracil (PTU) Take 25 mg by 0 Discontinued 50 MG tablet mouth Three 019 times daily. enoxaparin sodium Inject 0.4 mLs 18.9 mL 6 12/12/19 Discontinued (LOVENOX) 100 MG/ML into the skin 14 019 SOLN Daily. Propranolol HCl 20 MG TAKE ONE 60 tablet 2 01/04/20 Discontinued Oral Tablet TABLET BY 19 019 (INDERAL)Indications: MOUTH TWICE A Persistent migraine DAY aura without cerebral infarction and without status migrainosus, not intractable Propranolol HCl 20 MG Take 1 tablet 60 tablet 2 12/30/19 Discontinued Oral Tablet (INDERAL) by mouth Two 19 019 (Reorder) Times Daily documented as of this encounter (statuses as of 01/29/2019) Active Problems Problem Noted Date Migraine aura without headache 01/29/2019 Tremor 01/29/2019 Bilateral numbness and tingling of arms and legs 01/29/2019 Visual disturbance 01/29/2019 Cyst of ovary 10/11/2018 Acute bronchitis 10/11/2018 Lyme disease 10/11/2018 Controlled type 2 diabetes mellitus without complication 10/11/2018 Headache 10/11/2018 Advanced maternal age (AMA) in 12/23/2013 History of DVT (deep vein thrombosis) 12/23/2013 Overview: On Lovenox until 36 weeks gestation H/O Graves' disease 12/11/2013 documented as of this encounter (statuses as of 01/29/2019) Social History Tobacco Use Types Packs/Day Years Used Date Never Smoker Smokeless Tobacco: Never Used Alcohol Use Drinks/Week oz/Week Comments Yes Alcohol Habits Answer Date Recorded How often do you have a drink containing alcohol? Monthly or less 01/29/2019 How many drinks containing alcohol do you have on a 1 or 2 01/29/2019 typical day when you are drinking? How often do you have six or more drinks on one Never 01/29/2019 occasion? Sex Assigned at Date Recorded Not on file Job Start Date Occupation Industry Not on file Not on file Not on file Travel History Travel Start Travel End No recent travel history available. documented as of this encounter Last Filed Vital Signs Vital Sign Reading Time Taken Comments Blood Pressure 140/85 01/29/2019 1:58 PM EST Pulse 95 01/29/2019 1:58 PM EST Temperature - - Respiratory Rate - - Oxygen Saturation - - Inhaled Oxygen Concentration - - Weight 86.2 kg (190 lb) 01/29/2019 1:58 PM EST Height 169 cm (5' 6.54") 01/29/2019 1:58 PM EST Body Mass Index 30.18 01/29/2019 1:58 PM EST documented in this encounter Progress Notes Deanne Shepard MD - 01/29/2019 1:50 PM EST Neurology Follow Up Note Chief Complaint: multiple neurologic complaints HPI: Dori Santamaria is a 48 y.o. 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 She was in her usual state of health until age 43 when she developed new symptomsin the setting of an embryo adoption (IVF). This caused her to feel very sick. The symptoms includedtremors in her head and a feeling of buzzing, tinnitus, left sided facial numbness and trouble with her vision and balance. She also reports that these symptoms abated and then returned with even more force 2 years later in 2016 when she had neck stiffness, headache, and a tick bite. She had trouble thinking, leaning on things while teaching. She was very concerned about a possible vasculitis or lyme disease infection. She of note is following with Dr. Trujillo in [place] for a mixed undifferentiated connective tissue disorder. She also has a history of migraines but has not had one for many years. At last visit on 10/26/18 she and I discussed doing a full workup to evaluate her new symptoms--we decided to do MRI brain to r/o MS and evaluate her for vasculitis. I was concerned that her tinnitus may be due to overuse of aspirin ( she was taking 325mg 6x per day). For her headaches, we started propranolol 20mg daily. Since last visit she has stopped aspirin completely with some resolution of her tinnitus, although not complete. She has noted since starting the propranolol she has noted less twitching and tremors. She states that if she misses the dose she notes more twitching. She has noted that the ringing/buzzing is better , but wonders if this is a result of the aspirin or propranolol since she stopped it and started the other around the same time. Dr. Trujillo started plaquenil recently. She feels this has helped some. She has some pain in the foot. She continues to have an electrical feeling in her limbs. She notes it comes and goes. She reports persistent visual disturbances. She sees glittering or shining when looking at things. High contrast bothers her. And repeating patterns bother her -- like disturbing. She finds that these are "hard to look at". She denies any history of concussions, denies any headaches with these symptoms. She hasn't had a migraine in the while, but the first symptom is a loss in depth perception. She wonders if this is related. She reports that the first time she had more "lung based" symptoms. She will feel short of breath sometimes without any explanation. Sleep is better lately. She has been on sabbatical for a few more weeks. She feels well otherwise and denies any other pertinent complaint. Per HPI, otherwise negative for constitutional / eyes / ENMT / cardiovascular / respiratory / GI / / musculoskeletal / skin / endocrine / psych / heme Prior Diagnostic Results: MRI Brain w/ and w/o - 11/12/18 - (imaging reviewed with patient 01/29/19) There are a few scattered small foci of elevated T2/FLAIR signal within the periventricular and subcortical white matter. Thesedo not enhance. A cash application representative lesion is seen in axial image 20 and the right frontal morales radiata measures 0.3cm. 10/26/18 - CRP 1.51, ESR 3 10/12/18 - Myeloperoxidase AB - 3.9, Proteinase 3 <0.2 7/31/19 - Lyme negative IgG and IgM 09/10/18 - Free Cortisol 0.224, Quant IgG 1090 (nml), IgM (73), IgA (238), SSA negative, SSB negative, Sm negative, SOLDERER FURNACE negative, DsDNA negative, Scl 70 Negative, Jo1 negative, ANGY positive 1:320, complement C3 118, C4 22, P-ANCA positive, Celiac - equivocal, Anti Phospholipid Ab - negative, Babesia negative , Vit B6 - 18 02/08/2018 - TSH 2.10, Free T4 1.02, A1c 6.3 Allergies: Latex Past Medical History: Diagnosis Date Abnormal Pap smear of vagina lgsil-colpo,bx,cryo Constipation DVT (deep venous thrombosis) Female infertility of unspecified origin 2 rounds IVF-then had embyro donor Fibroids Heart palpitations 8 years ago-found out she was hypothyroid HPV (human papilloma virus) anogenital infection Thyroid disease 8 years ago-Dx graves disease Trauma sports injury-knee Vasovagal syncope Past Surgical History: Procedure Laterality Date FOOT SURGERY KNEE SURGERY LAPAROSCOPY Endometriosis,ovarian cysts and fibroid removal LEEP 07/2000 Social History Socioeconomic History Marital status: Spouse name: None Number of children: None Years of education: None Highest education level: None Occupational History None Social Needs Financial resource strain: None Food insecurity: Worry: None Inability: None Transportation needs: Medical: None Non-medical: None Tobacco Use Smoking status: Never Smoker Smokeless tobacco: Never Used Substance and Sexual Activity Alcohol use: Yes Frequency: Monthly or less Drinks per session: 1 or 2 Binge frequency: Never Drug use: No Sexual activity: Yes Partners: Male Lifestyle Physical activity: Days per week: None Minutes per session: None Stress: None Relationships Social connections: Talks on phone: None Gets together: None Attends samaritan service: None Active member of club or organization: None Attends meetings of clubs or organizations: None Relationship status: None Intimate partner violence: Fear of current or ex partner: None Emotionally abused: None Physically abused: None Forced sexual activity: None Other Topics Concern None Social History Narrative None Family History Problem Relation Age of Onset Cancer Paternal Grandmother Cancer Maternal Grandfather Diabetes Father Schizophrenia Child Medications: Outpatient Medications Marked as Taking for the 01/29/19 encounter (Office Visit ) with Deanne Shepard MD Medication Sig Dispense Refill Extra Info acetaminophen, TYLENOL, tablet 325 MG tablet Take 650 mg by mouth as needed 1 ACETAMINOPHEN-BUTALBITAL 50-325 MG TABS Take 1-2 tablets by mouth as needed 1 Albuterol Sulfate HFA 108 (90 Base) MCG/ACT Inhalation Aerosol Solution ( PROVENTIL HFA;VENTOLIN HFA) Inhale 1 puff into the lungs as needed 3 1 aspirin 81 MG chewable tablet Chew 81 mg by Mouth as needed 1 hydroxychloroquine (PLAQUENIL) 200 MG tablet Take 200 mg by mouth Two Times Daily 1 Multivitamin Adult Oral Tablet Chewable Chew 1 tablet by Mouth daily 1 Propranolol HCl 20 MG Oral Tablet (INDERAL) Take 1 tablet by mouth Two Times Daily 60 tablet 2 1 TAURINE PO Take 1 tablet by mouth daily 1 UNABLE TO FIND Take 1 tablet by mouth daily ADP- herbal supplement 1 UNABLE TO FIND Take 1 tablet by mouth daily [place] Lipoate 1 VITAMIN D, CHOLECALCIFEROL, PO Take 1 tablet by mouth daily 1 Visit Vitals BP 140/85 Pulse 95 Ht 1.69 m (5' 6.54") Wt 86.2 kg (190 lb) LMP 12/29/2018 ? No BMI 30.18 kg/m Body mass index is 30.18 kg/m. Exam: Mental Status: Fully oriented to person, place and time. Intact recent and remote memory. No aphasia. Concentration and attention span normal. Fund of knowledge normal. Cranial nerves: Visual ruffin: Intact. Fundi: Normal discs. Pupils: ERRL. EOMs: normal. Facial sensation: Intact to light touch. Facial movements: Normal. Hearing: Grossly intact. Palate: Elevates symmetrically. Shoulder shrug: Normal bilaterally. Tongue: Protrudes in midline; no atrophy or fasciculations. Motor: Tone: normal. Bulk: normal. No adventitious movements. Strength: Neck flexion 5/5, neck extension 5/5. Muscle / Movement Right Left Deltoid 5/5 5/5 Biceps 5/5 5/5 Triceps 5/5 5/5 Wrist extension 5/5 5/5 Finger extension 5/5 5/5 Wrist flexion 5/5 5/5 Finger flexion 5/5 5/5 Abductor pollicis brevis 5/5 5/5 First dorsal interosseous 5/5 5/5 Abductor digiti minimi 5/5 5/5 Hip flexion 5/5 5/5 Hip extension 5/5 5/5 Knee extension 5/5 5/5 Knee flexion 5/5 5/5 Ankle dorsiflexion 5/5 5/5 Ankle plantarflexion 5/5 5/5 Reflex Right Left Biceps 2+ 2+ Triceps 2+ 2+ Brachioradialis 2+ 2+ Patellar 2+ 2+ Achilles 2+ 2+ Sensory: Light touch intact b/l UE and LE, pinprick intact b/l UE and LE, vibration intact, and joint position sense intact. Coordination: No dysmetria on finger to nose. Gait: normal . Romberg negative. General: No apparent distress. Skin: No rash or cutaneous stigmata. Extremities: Normal pulses, no cyanosis or edema. Impression/Plan: Ms. Santamaria is a 48F with a history of migraine with aura who presents for follow up of multiple neurologic complaints: 1) Visual disturbance "glitter vision". I am not certain if this represents some sort of aura without migraine or a primary vision issue. I see no signs of any gross field deficits or fundus edema. Given she finds this the most persistent and concerning symptom, we decided to try a preventative medication for migraine to see if this will help. MRI shows a few white matter lesions that are NOT consistent with MS but ARE consistent with a history of migraine. -Start duloxetine 30mg daily 2) Electrical feeling in the limbs, but non-focal. I am not certain if this represents a lumbar or cervical spine issue, but as it is intermittent and not isolated I believe the best course of action is to continue with observation. Perhaps Duloxetine which is used for fibromyalgia pains may help withthis. -as above 3) Muscle "twitching" and feeling of tremulousness - continue propranolol 20mg as she finds this helpful. -She was advised that if she is having any asthma symptoms this may provoke them due to beta blockade. 4) Tinnitus -continue to observe for improvement -- unclear if related to her prior high dose aspirin use. No gross hearing deficits to suggest audiology testing needed. My overall impression of Ms. 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 I do not find a lot of clear physical signs to identify her complaints and she seems to embellish the history with more details the more she learns about different conditions-- for example, when I explained that EQUALIZER OPERATOR lyme can cause white matter lesions but they typically occur in the setting of a fever, meningitis (headache/neck stiffness) she is quick to add these details to her history from 2016, which was not as described before. I am not sure if this is due to her recollection of the event or her desire for a clear diagnosis. At this time I suspect her white matter lesions are simply sequelae of prior migraines and there is no indication based on her general appearance for a lumbar puncture. Deanne Shepard MD General Neurology/Neuromuscular Medicine documented in this encounter Plan of Treatment Date Type Specialty Care Team Description 09/03/2019 Office Visit Neurology Deanne Shepard MD [address] [facility] 4th Floor [address] [place] [address] Health Maintenance Due Date Last Done Comments Lipid Disorder Screening 1970 MMR Vaccines (1 of 1 - Standard 1970 series) Varicella Vaccines (1 of 2 - 1970 2-dose childhood series) Pneumococcal Vaccine: Pediatrics 06/17/1975 (0 to 5 Years) and At-Risk Patients (6 to 64 Years) (1 of 1 - PPSV23) Diabetic Foot Exam 06/17/1987 Dilated Retinal Exam 06/17/1987 Hemoglobin A1c 06/17/1987 Urine Microalbumin 06/17/1987 Hepatitis B Vaccines (1 of 3 - 1988 Risk 3-dose series) DTaP,Tdap,and Td Vaccines (2 - Td) 07/16/2014 06/18/2014 Influenza Vaccine 11/13/2018 Cervical Cancer Screening 5 years 12/23/2018 12/23/2013 Pneumococcal Vaccine: 65+ Years (1 2034 of 2 - PCV13) HIV Screening Completed 12/23/2013 HIB Vaccines Aged Out No longer eligible based on patient's age to complete this topic Hepatitis A Vaccines Aged Out No longer eligible based on patient's age to complete this topic IPV Vaccines Aged Out No longer eligible based on patient's age to complete this topic documented as of this encounter Results Not on filedocumented in this encounter Visit Diagnoses Diagnosis Migraine aura without headache - Primary Migraine with aura, without mention of intractable migraine without mention of status migrainosus Tremor Abnormal involuntary movements Bilateral numbness and tingling of arms and legs Visual disturbance Unspecified visual disturbance documented in this encounter
--- OUTSIDE RECORDS SUMMARY | 2019-03-28 14:15 | XMS REPORT | Continuity of Care Document ---
:1970 External Reference #:[id number] Author Name Mabel Anders MD (transmitted by agent of provider Hafsa Vasques) Address [address] [place] [address] Care Team Providers Name Role Phone Josiah Smith MD - Family Medicine Care Team Information Jazz Musician Problems Description No Information Available Social History Type Date Description Comments Sex Unknown ETOH Use Denies alcohol use Tobacco Use Start: Unknown Patient has never smoked Recreational Drug Use Denies Drug Use Smoking Status Reviewed: 02/19/19 Patient has never smoked Exercise Type/Frequency Exercises [...] one 90caps Sacha Trujillo, 10/07/2018 2000Unit capsule/tablet M.DMilly Capsules daily by mouth Zyflamend Sacha Trujillo, 09/10/2018 Rod.DMilly Emulsified Oregano Unknown Hydroxychloroquine Take One Tablet Unknown Sulfate By Mouth Twice A 200mg Tablets Day Propranolol HCL 1 tab by mouth Unknown 10mg Tablets twice daily Duloxetine HCL Deanne Shepard, 30mg Caps DR Tavera Part Taurine Unknown 500mg Capsules Immunizations Description No Information Available Vital Signs Date Vital Result Comment 02/19/2019 3:06pm Height 67 inches 5'7" Weight 194.00 lb Heart Rate 95 /min BP Systolic Sitting 108 mmHg L arm BP Diastolic Sitting 70 mmHg L arm O2 % BldC Oximetry 97 % BMI (Body Mass Index) 30.4 kg/m2 02/04/2019 11:40am Height 67 inches 5'7" Weight 189.38 lb Heart Rate 77 /min BP Systolic Sitting 114 mmHg BP Diastolic Sitting 80 mmHg Body Temperature 98.5 F Pain Level 1 O2 % BldC Oximetry 96 % BMI (Body Mass Index) 29.7 kg/m2 Results Test Acquired Date Facility Test Result H/L Range Note Urinalysis Profile 02/11/2019 [facility] Urine Color Straw [address] [place] [address] [phone] Urine Appearance Clear Urine Specific [place] 1.006 Low 1.010-1.030 Urine pH 7.0 Normal 5-9 Urine Urobilinogen Negative Negative Urine Ketones Negative Negative Urine Protein Negative Negative Urine Leukocytes Negative Negative Urine Blood Negative Negative Urine Nitrite Negative Negative Urine Bilirubin Negative Negative Urine Glucose Negative Negative Laboratory test 02/11/2019 [facility] Creatinine Random 39.29 mg /dL finding [address] [employer] [place] [address] [phone] Total Protein Random Urine < 4 mg/dL Laboratory test 02/11/2019 [facility] Proteinase 3 <0.2 U 1 finding [address] [place] [address] [phone] Anca Panel For 02/11/2019 [facility] Myeloperoxidase AB 3.9 U High 2 Vasculitis [facility] [place] [address] [phone] Proteinase 3 AB < 0.2 U 3 Laboratory test 02/11/2019 [facility] Anti Nuclear 0.4 U 4 finding [address] [employer] [place] [address] [phone] Anca AB Ser If 02/11/2019 [facility] C-Anca Negative Negative [facility] [place] [address] [phone] P-Anca Negative Negative 5 Urine Culture And 02/04/2019 [facility] Urine SEE RESULT 6 , [address] [place] [address] [phone] Laboratory test 02/04/2019 [facility] Vitamin D 27.0 ng/mL Normal 20-[address] Total 0 [place] [address] 25(Oh) [phone] Vitamin B12 And 02/04/2019 [facility] Vitamin B12 599 pg/mL Normal 180- [address] [place] [address] [phone] Folic Acid (Folate) > 20.00 ng/mL >3.99 10 Laboratory test 02/04/2019 [facility] Hemoglobin A1c 6.3 % High 4.0-5.[address] (Glyco HGB) [place] [address] [phone] Urinalysis 02/04/2019 [facility] Urine Color Yellow Profile [address] [place] [address] [phone] Urine Appearance Cloudy Urine Specific [place] 1.014 Normal 1.010-1.030 Urine pH 7.0 Normal 5-9 Urine Urobilinogen Negative Negative Urine Ketones Negative Negative Urine Protein Negative Negative Urine Leukocytes Trace Abnormal Negative Urine Blood Negative Negative Urine Nitrite Negative Negative Urine Bilirubin Negative Negative Urine Glucose Negative Negative Urine White Blood Cell Trace(0-5/hpf) Absent Urine Red Blood Cell 1+(3-5/hpf) Abnormal Absent Urine Bacteria 1+ Abnormal Absent Urine Squamous Epithelial Cell Present Abnormal Absent Comp Metabolic 02/04/2019 [facility] Sodium 137 mmol/L Normal 135-[address] [place] [address] [phone] Potassium 4.2 mmol/L Normal 3.5-5.0 Chloride 102 mmol/L Normal 101-111 Co2 Carbon Dioxide 28 mmol/L Normal 22-32 Anion Gap 7 mmol/L Normal 2-11 Glucose 92 mg/dL Normal 70-100 Blood Urea Nitrogen 10 mg/dL Normal 6-24 Creatinine 0.85 mg/dL Normal 0.51-0.95 BUN/Creatinine Ratio 11.8 Normal 8-20 Calcium 9.6 mg/dL Normal 8.6-10.3 Total Protein 7.5 g/dL Normal 6.4-8.9 Albumin 4.7 g/dL Normal 3.2-5.2 Globulin 2.8 g/dL Normal 2-4 Albumin/Globulin Ratio 1.7 Normal 1-3 Total Bilirubin 0.40 mg/dL Normal 0.2-1.0 Alkaline Phosphatase 55 U/L Normal 34-104 Alt 19 U/L Normal 7-52 Ast 19 U/L Normal 13-39 Egfr Non- 71.1 >60 Egfr 86.0 >60 12 CBC Auto 02/04/2019 [facility] White Blood 7.8 10^3/uL Normal 3.5-10.[address] [place] [address] [phone] Red Blood Count 5.10 10^6/uL High 3.70-4.87 Hemoglobin 13.9 g/dL Normal 12.0-16.0 Hematocrit 41 % Normal 35-47 Mean Corpuscular Volume 80 fL Normal 80-97 Mean Corpuscular Hemoglobin 27 pg Normal 27-31 Mean Corpuscular HGB Conc 34 g/dL Normal 31-36 Red Cell Distribution Width 13 % Normal 10-15 Platelet Count 252 10^3/uL Normal 150-450 Mean Platelet Volume 9.1 fL Normal 7.4-10.4 Abs Neutrophils 4.8 10^3/uL Normal 1.5-7.7 Abs Lymphocytes 2.5 10^3/uL Normal 1.0-4.8 Abs Monocytes 0.4 10^3/uL Normal 0-0.8 Abs Eosinophils 0.1 10^3/uL Normal 0-0.6 Abs Basophils 0.0 10^3/uL Normal 0-0.2 Abs Nucleated RBC 0.0 10^3/uL Granulocyte % 61.4 % Lymphocyte % 31.5 % Monocyte % 5.7 % Eosinophil % 1.0 % Basophil % 0.4 % Nucleated Red Blood Cells % 0.1 Laboratory 02/04/2019 [facility] Myeloperoxidase 3.5 U Abnormal 13 test finding [address] [place] [address] [phone] Anca AB Ser 02/04/2019 [facility] C-Anca Negative Negative If [address] [place] [address] [phone] P-Anca Positive Abnormal Negative 14 Laboratory test 02/04/2019 [facility] Erythrocyte Sed 28 mm/Hr High 0-19 [address] [place] [address] [phone] C Reactive Protein 1.27 mg/L Normal <8.01 16 Laboratory 02/04/2019 [facility] Myeloperoxidase 3.5 U Abnormal 17 test finding [address] [place] [address] [phone] Anca AB Ser 02/04/2019 [facility] C-Anca Negative Negative If [address] [place] [address] [phone] P-Anca Positive Abnormal Negative 18 Laboratory test 02/04/2019 [facility] Erythrocyte Sed 28 mm/Hr High 0-[address] [place] [address] [phone] Hemoglobin A1c (Glyco HGB) 6.3 % High 4.0-5.6 20 CBC Auto 02/04/2019 [facility] White Blood 7.8 10^3/uL Normal 3.5-10.[address] [place] [address] [phone] Red Blood Count 5.10 10^6/uL High 3.70-4.87 Hemoglobin 13.9 g/dL Normal 12.0-16.0 Hematocrit 41 % Normal 35-47 Mean Corpuscular Volume 80 fL Normal 80-97 Mean Corpuscular Hemoglobin 27 pg Normal 27-31 Mean Corpuscular HGB Conc 34 g/dL Normal 31-36 Red Cell Distribution Width 13 % Normal 10-15 Platelet Count 252 10^3/uL Normal 150-450 Mean Platelet Volume 9.1 fL Normal 7.4-10.4 Abs Neutrophils 4.8 10^3/uL Normal 1.5-7.7 Abs Lymphocytes 2.5 10^3/uL Normal 1.0-4.8 Abs Monocytes 0.4 10^3/uL Normal 0-0.8 Abs Eosinophils 0.1 10^3/uL Normal 0-0.6 Abs Basophils 0.0 10^3/uL Normal 0-0.2 Abs Nucleated RBC 0.0 10^3/uL Granulocyte % 61.4 % Lymphocyte % 31.5 % Monocyte % 5.7 % Eosinophil % 1.0 % Basophil % 0.4 % Nucleated Red Blood Cells % 0.1 Laboratory test 02/04/2019 [facility] Vitamin B12 599 pg/mL Normal 180-[address] [place] [address] [phone] Folic Acid (Folate) > 20.00 ng/mL >3.99 22 C Reactive Protein 1.27 mg/L Normal <8.01 23 Vitamin D Total 25(Oh) 27.0 ng/mL Normal 20-50 24 Comp Metabolic 02/04/2019 [facility] Sodium 137 mmol/L Normal 135-145 [place] [address] [phone] Potassium 4.2 mmol/L Normal 3.5-5.0 Chloride 102 mmol/L Normal 101-111 Co2 Carbon Dioxide 28 mmol/L Normal 22-32 Anion Gap 7 mmol/L Normal 2-11 Glucose 92 mg/dL Normal 70-100 Blood Urea Nitrogen 10 mg/dL Normal 6-24 Creatinine 0.85 mg/dL Normal 0.51-0.95 BUN/Creatinine Ratio 11.8 Normal 8-20 Calcium 9.6 mg/dL Normal 8.6-10.3 Total Protein 7.5 g/dL Normal 6.4-8.9 Albumin 4.7 g/dL Normal 3.2-5.2 Globulin 2.8 g/dL Normal 2-4 Albumin/Globulin Ratio 1.7 Normal 1-3 Total Bilirubin 0.40 mg/dL Normal 0.2-1.0 Alkaline Phosphatase 55 U/L Normal 34-104 Alt 19 U/L Normal 7-52 Ast 19 U/L Normal 13-39 Egfr Non- 71.1 >60 Egfr 86.0 >60 25 Laboratory test 11/05/2018 [facility] Histone <0.5 U [address] [place] [address] [place] [address] [phone] Nuclear AB 11/05/2018 [facility] Nuclear Ab Positive Abnormal 27 (Tasia) By [employer] [address] [place] [address] (Tasia) by If[employer], 1:[address] [place] [address] IgG [phone] Tasia Titer: 1:160 Tasia Pattern: Dense Fine Speck <SEE NOTE> 28 Laboratory test 11/05/2018 [facility] Anti Nuclear 0.6 U [address] [place] [address] [place] [address] [phone] Neutrophil 11/05/2018 [facility] C-Anca Negative [place] [address] [phone] P-Anca Negative Negative 30 Anca Panel For 11/05/2018 [facility] Myeloperoxidase AB 3.7 U High [address] [place] [address] [phone] Proteinase 3 AB < 0.2 U 32 Laboratory test 11/05/2018 [facility] Myeloperoxidase AB 3.6 U Abnormal [address] [place] [address] [phone] Proteinase 3 <0.2 U 34 Basic Metabolic 11/05/2018 [facility] Sodium 137 mmol/L Normal 135-[address] [place] [address] [phone] Potassium 3.9 mmol/L Normal 3.5-5.0 Chloride 103 mmol/L Normal 101-111 Co2 Carbon Dioxide 27 mmol/L Normal 22-32 Anion Gap 7 mmol/L Normal 2-11 Glucose 100 mg/dL Normal 70-100 Blood Urea Nitrogen 16 mg/dL Normal 6-24 Creatinine 0.97 mg/dL High 0.51-0.95 BUN/Creatinine Ratio 16.5 Normal 8-20 Calcium 9.2 mg/dL Normal 8.6-10.3 Egfr Non- 61.0 >60 Egfr 73.9 >60 35 Urinalysis Profile 11/05/2018 [facility] Urine Color Yellow [address] [place] [address] [phone] Urine Appearance Cloudy Urine Specific [place] 1.027 Normal 1.010-1.030 Urine pH 6.0 Normal 5-9 Urine Urobilinogen Negative Negative Urine Ketones Negative Negative Urine Protein Negative Negative Urine Leukocytes Negative Negative Urine Blood Negative Negative Urine Nitrite Negative Negative Urine Bilirubin Negative Negative Urine Glucose Negative Negative CBC Auto 11/05/2018 [facility] White Blood 9.0 10^3/uL Normal 3.5-10.[address] [facility] [place] [address] [phone] Red Blood Count 4.71 10^6/uL Normal 3.70-4.87 [...] % Nucleated Red Blood Cells % 0.0 Neph Routine 11/05/2018 [facility] Total Protein Random 12 mg/ dL [address] [place] [address] [phone] Creatinine Random Urine 195.72 mg/dL Basic Metabolic 10/26/2018 [facility] Sodium 138 mmol/L Normal 135-[address] [place], [place] [address] [phone] Potassium 4.0 mmol/L Normal 3.5-5.0 Chloride 104 mmol/L Normal 101-111 Co2 Carbon Dioxide 28 mmol/L Normal 22-32 Anion Gap 6 mmol/L Normal 2-11 Glucose 107 mg/dL High 70-100 Blood Urea Nitrogen 10 mg/dL Normal 6-24 Creatinine 0.89 mg/dL Normal 0.51-0.95 BUN/Creatinine Ratio 11.2 Normal 8-20 Calcium 9.4 mg/dL Normal 8.6-10.3 Egfr Non- 67.4 >60 Egfr 81.6 >60 36 Laboratory test 10/26/2018 [facility] C Reactive 1.51 mg/L Normal <8.[address] Protein [place], [place] [id number] [phone] Erythrocyte Sed Rate 3 mm/Hr Normal 0-19 Urine Culture 10/12/2018 [facility] Urine Culture SEE [address] [place] [address] BELOW [phone] Laboratory test 10/12/2018 [facility] Myeloperoxidase AB 3.9 U Abnormal [address] [place], [place] [address] [phone] Proteinase 3 <0.2 U 39 Urinalysis Profile 10/12/2018 [facility] Urine Color Yellow [address] [place], [place] [address] [phone] Urine Appearance Cloudy Urine Specific [place] 1.015 Normal 1.010-1.030 Urine pH 5.0 Normal [...] Cell Present Abnormal Absent Basic Metabolic 10/12/2018 [facility] Sodium 138 mmol/L Normal 135-[address] [place] [address] [phone] Potassium 4.0 mmol/L Normal 3.5-5.0 Chloride 104 mmol/L Normal 101-111 Co2 Carbon Dioxide 27 mmol/L Normal 22-32 Anion Gap 7 mmol/L Normal 2-11 Glucose 86 mg/dL Normal 70-100 Blood Urea Nitrogen 10 mg/dL Normal 6-24 Creatinine 0.88 mg/dL Normal 0.51-0.95 BUN/Creatinine Ratio 11.4 Normal 8-20 Calcium 9.7 mg/dL Normal 8.6-10.3 Egfr Non- 68.3 >60 Egfr 82.6 >60 40 Laboratory test 09/10/2018 [facility] Vitamin D 19.1 ng/mL Low 20-[address] Total 25(Oh) [place] [address] [phone] Celiac Hla 09/10/2018 [facility] Hla-Dqa1 SEE BELOW [address] [place] [address] [phone] Hla-DQB1 SEE BELOW 43 Celiac Gene Pairs Present? Equivocal Celiac Gene Interpretation See Comment 44 Celiac Panel 09/10/2018 [facility] Tissue Transglutaminase <1.2 U/mL [address] [place] [address] [phone] Immunoglobulin A 252 mg/dL 61 - 356 Celiac Interpretation See Comment 46 CBC Auto 09/10/2018 [facility] White Blood 7.5 10^3/uL Normal 3.5-10.[address] [place] [place] [address] [phone] Red Blood Count 4.96 10^6/uL High 3.70-4.87 [...] Blood Cells % 0.0 Laboratory test 09/10/2018 [facility] Free Cortisol 0.224 g/ dL [address] [place] [address] [phone] T3 Free 3.00 pg/mL Normal 2.5-3.9 48 Vitamin B6 09/10/2018 [facility] Pyridoxal 5-Phosphate 18 g/L 5-50 49 [address] [place] [address] [phone] Pyridoxic Acid 9 g/L 3-30 50 Vitamin B12 09/10/2018 [facility] Vitamin B12 677 pg/mL Normal 180-914 [address] [place] [address] [phone] Folic Acid (Folate) > 20.00 ng/mL >3.99 52 Tick-Borne Panel 09/10/2018 [facility] Babesia Negative Negative PCR Blood [address] [facility] [place] [address] [phone] Babesia ducani Negative Negative Babesia divergens/Mo-1 Negative Negative 53 Anaplasma phagocytophilum Negative Negative Ehrlichia chaffeensis Negative Negative Ehrlichia ewingii/canis Negative Negative Ehrlichia muris eauclairensis Negative Negative 54 B. miyamotoi PCR, B Negative Negative 55 Lyme Disease AB 09/10/2018 [facility] IgG Immunoblot Negative [place] [address] [phone] IgG detected against None kDa IgM Immunoblot Negative Negative IgM detected against None kDa Lyme Disease Interpretation See Comment 56 Cardiolipin 09/10/2018 [facility] Phospholipid Ab < 9.4 MPL 57 Igg/Igm IgM, [place] [address] [phone] Phospholipid Ab IgG < 9.4 GPL 58 Nuclear AB 09/10/2018 [facility] Nuclear Ab Positive 1:320 Abnormal 59 (Tasia) By Ifa (Tasia) by Ifa, [place] [address] IgG [phone] Tasia Titer: 1:320 Tasia Pattern: Dense Fine Speck <SEE NOTE> 60 Laboratory test 09/10/2018 [facility] Anti Double <12.3 IU/mL 61 finding [place] [address] [phone] Complement C3 118 mg/dL 75 - 175 62 Complement C4 22 mg/dL 14 - 40 63 Jane Igg AB Reflex 09/10/2018 [facility] SS-A/Ro Antibody <0.2 U 64 [place] [address] [phone] SS-B/La Antibody <0.2 U 65 Sm (Soler) IgG Antibody <0.2 U 66 TITLE INSURANCE AGENT Antibody, IgG <0.2 U 67 Scl-70 (Scleroderma) Antibody <0.2 U 68 Aubree-1 Antibody <0.2 U 69 Anca AB Ser If 09/10/2018 [facility] C-[place]ca [place] [address] [phone] P-Anca Positive Abnormal Negative 70 Laboratory test 09/10/2018 [facility] Creatine 116 Normal 10- [address] [facility] Kinase(CK) U/[place] [address] [phone] Immunoglobulins 09/10/2018 [facility] Immunoglobulin G 1090 767 - 72 Serum Quant mg/dL 15[address] [place] [address] [phone] Immunoglobulin M 73 mg/dL 37 - 286 Immunoglobulin A 238 mg/dL 61 - 356 1 REFERENCE VALUE <0.4 (Negative) Test Performed by: [facility] [address] Environmental Monitoring Specialist: Oli Marcos M.D. Ph.D.; CLIA# [id number] 2 Interpretation: Positive (>=1.0) REFERENCE VALUE <0.4 (Negative) 3 REFERENCE VALUE <0.4 (Negative) Test Performed by: [facility] [address] Environmental Monitoring Specialist: Oli Marcos M.D. Ph.D.; CLIA# [id number] 4 REFERENCE VALUE <=1.0 (Negative) Test Performed by: [facility] [address] Environmental Monitoring Specialist: Oli Marcos M.D. Ph.D.; CLIA# [id number] 5 Positive for anti-MPO antibody by solid-phase immunoassay. Neither cANCA nor pANCA patterns identified by immunofluorescence using ethanol-fixed neutrophils. Discrepancy between results may reflect differences in sensitivities of methods for lower-titer antibodies. Unable to provide further interpretation without clinical information. Correlation with clinical presentation recommended. Results consistent with testing performed on 11/07/2018. ADDITIONAL INFORMATION This test was developed and its performance characteristics determined by [facility] in a manner consistent with CLIA requirements. This test has not been cleared or approved by the U.S. Food and Drug Administration. Test Performed by: [facility] [address] [place] [address] Environmental Monitoring Specialist: Oli Marcos M.D. Ph.D.; CLIA# [id number] 6 Please check labs today 7 SEE RESULT BELOW Name: BROOKE SANTAMARIA : [address]: Sacha Trujillo MD Acct: [id number] Unit: [id number] AGE: 48 Location: LAB Re02/04/19 SEX: F Status: REG REF SPEC: [id number] BECKIE: 02/04/19-[address]: Sacha Trujillo MD REQ: [id number] RECD: 02/04/19 STATUS: SKINNY PEDROZA DR: Josiah Smith MD _ SOURCE: URINE SPDESC: ORDERED: Urine Culture Procedure Result Reported Site Urine Culture Final 02/05/19- 1016 ML No Growth (<1,000 CFU/mL) * ML - Main Lab . END OF REPORT DEPARTMENT OF PATHOLOGY, [address] [place] [address] Henrry Han M.D. Director [facility] # [id number] 8 Total 25-Hydroxyvitamin D2 and D3 (25-OH-VitD) <10 ng/mL (severe deficiency) 10-19 ng/mL (mild to moderate deficiency) 20-50 ng/mL (optimum levels) 51-80 ng/mL (increased risk of hypercalciuria) >80 ng/mL (toxicity possible) 9 Normal Range 180 to 914 Indeterminate Range 145 to 180 Deficient Range <145 10 Please check labs today 11 Therapeutic target for the treatment of diabetes mellitus patients is <7% HBA1C, and in selective patients <6.0%. Please refer to [place] [employer] diabetic care guidelines for further information. 12 Because ethnic data is not always readily [...] 15-29 5 Kidney failure <15 (or dialysis) 13 Interpretation: Positive (>=1.0) REFERENCE VALUE <0.4 (Negative) Test Performed by: [facility] [address] Environmental Monitoring Specialist: Oli Marcos M.D. Ph.D.; CLIA# [id number] 14 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 Suggest further testing for anti-myeloperoxidase (anti-MPO) antibodies, if clinically indicated. ADDITIONAL INFORMATION This test was developed and its performance characteristics determined by [facility] in a manner consistent with CLIA requirements. This test has not been cleared or approved by the U.S. Food and Drug Administration. Test Performed by: [facility] [address] Environmental Monitoring Specialist: Oli Marcos M.D. Ph.D.; CLIA# [id number] 15 Please check labs today 16 Please check labs today 17 Interpretation: Positive (>=1.0) REFERENCE VALUE <0.4 (Negative) Test Performed by: [facility] [address] Environmental Monitoring Specialist: Oli Marcos M.D. Ph.D.; CLIA# [id number] 18 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 Suggest further testing for anti-myeloperoxidase (anti-MPO) antibodies, if clinically indicated. ADDITIONAL INFORMATION This test was developed and its performance characteristics determined by [facility] in a manner consistent with CLIA requirements. This test has not been cleared or approved by the U.S. Food and Drug Administration. Test Performed by: [facility] [address] Environmental Monitoring Specialist: Oli Marcos M.D. Ph.D.; CLIA# [id number] 19 Please check labs today 20 Therapeutic target for the treatment of diabetes mellitus patients is <7% HBA1C, and in selective patients <6.0%. Please refer to [place] [employer] diabetic care guidelines for further information. 21 Normal Range 180 to 914 Indeterminate Range 145 to 180 Deficient Range <145 22 Please check labs today 23 Please check labs today 24 Total 25-Hydroxyvitamin D2 and D3 (25-OH-VitD) <10 ng/mL (severe deficiency) 10-19 ng/mL (mild to moderate deficiency) 20-50 ng/mL (optimum levels) 51-80 ng/mL (increased risk of hypercalciuria) >80 ng/mL (toxicity possible) 25 Because ethnic data is not always readily [...] 15-29 5 Kidney failure <15 (or dialysis) 26 REFERENCE VALUE <1.0 (Negative) Test Performed by: [address] [address] Environmental Monitoring Specialist: Oli Marcos M.D. Ph.D.; CLIA# [id number] 27 REFERENCE VALUE <1:80 (Negative) 28 Dense Fine Speckled Test Performed by: [facility] [address] Environmental Monitoring Specialist: Oli Marcos M.D. Ph.D.; CLIA# [id number] 29 REFERENCE VALUE <=1.0 (Negative) Test Performed by: [place] [address] Environmental Monitoring Specialist: Oli Marcos M.D. Ph.D.; CLIA# [id number] 30 Positive for anti-MPO antibody by solid-phase immunoassay. Neither cANCA nor pANCA patterns identified by immunofluorescence using ethanol-fixed neutrophils. Discrepancy between results may reflect differences in sensitivities of methods for lower-titer antibodies. Unable to provide further interpretation without clinical information. Correlation with clinical presentation recommended. ADDITIONAL INFORMATION This test was developed and its performance characteristics determined by [facility] in a manner consistent with CLIA requirements. This test has not been cleared or approved by the U.S. Food and Drug Administration. Test Performed by: [facility] [address] Environmental Monitoring Specialist: Oli Marcos M.D. Ph.D.; CLIA# [id number] 31 Interpretation: Positive (>=1.0) REFERENCE VALUE <0.4 (Negative) 32 REFERENCE VALUE <0.4 (Negative) Test Performed by: [facility] [address] Environmental Monitoring Specialist: Oli Marcos M.D. Ph.D.; CLIA# [id number] 33 Interpretation: Positive (>=1.0) REFERENCE VALUE <0.4 (Negative) Test Performed by: [facility] [address] Environmental Monitoring Specialist: Oli Marcos M.D. Ph.D.; CLIA# [id number] 34 REFERENCE VALUE <0.4 (Negative) Test Performed by: [place] [address] Environmental Monitoring Specialist: Oli Marcos M.D. Ph.D.; CLIA# [id number] 35 Because ethnic data is not always readily [...] 15-29 5 Kidney failure <15 (or dialysis) 36 Because ethnic data is not always readily [...] 15-29 5 Kidney failure <15 (or dialysis) 37 SEE RESULT BELOW Name: SANTAMARIADIANABROOKE L : [address]: Sacha Trujillo MD Acct: [id number] Unit: [id number] AGE: 48 Location: LAB Re10/12/18 SEX: F Status: REG REF SPEC: [id number] [place]: 10/12/18-1238 [facility] DR: Sacha Trujillo MD REQ: [id number] RECD: 10/12/184 STATUS: COMP _ SOURCE: URINE SPDESC: ORDERED: Urine Culture Procedure Result Reported Site Urine Culture Final 10/13/18- 1224 ML No Growth (<1,000 CFU/mL) * ML - Main Lab . END OF REPORT DEPARTMENT OF PATHOLOGY, [address] [place] [address] Henrry Han M.D. Director [facility] # [id number] 38 Interpretation: Positive (>=1.0) REFERENCE VALUE <0.4 (Negative) Test Performed by: [facility] - [address] [address] 39 REFERENCE VALUE <0.4 (Negative) Test Performed by: [address] [address] 40 Because ethnic data is not always readily [...] 15-29 5 Kidney failure <15 (or dialysis) 41 Total 25-Hydroxyvitamin D2 and D3 (25-OH-VitD) <10 ng/mL (severe deficiency) 10-19 ng/mL (mild to moderate deficiency) 20-50 ng/mL (optimum levels) 51-80 ng/mL (increased risk of hypercalciuria) >80 ng/mL (toxicity possible) 42 RESULT: 01:02,02:01 REFERENCE VALUE Not Applicable 43 RESULT: 02:02,06:02 DQ Serologic Equivalent: 2,6 REFERENCE VALUE Not Applicable 44 While the patient lacks the gene pairs [...] medium resolution molecular values. Performing Laboratory CLIA# [id number] Test Performed by: [facility] - [address] [address] 45 REFERENCE VALUE <4.0 (Negative) Test Performed by: [facility] [address] 46 Negative serology. Celiac disease unlikely. However, approximately 10% of patients with celiac disease are seronegative. Also, patients who are already adhering to a gluten-free diet may be seronegative. If celiac disease is highly clinically suspected, consider HLA-DQ typing. Test Performed by: [facility] - [place] [id number] 47 REFERENCE VALUE 6:00-10:30 AM Collection 0.121-1.065 mcg/dL ADDITIONAL INFORMATION This test was developed and its performance characteristics determined by [facility] in a manner consistent with CLIA requirements. This test has not been cleared or approved by the U.S. Food and Drug Administration. Test Performed by: [facility] - [address] [address] 48 Please check labs this week 49 ADDITIONAL INFORMATION This test was developed and its performance characteristics determined by [facility] in a manner consistent with CLIA requirements. This test has not been cleared or approved by the U.S. Food and Drug Administration. 50 ADDITIONAL INFORMATION This test was developed and its performance characteristics determined by [facility] in a manner consistent with CLIA requirements. This test has not been cleared or approved by the U.S. Food and Drug Administration. Test Performed by: [facility] - [address] [address] 51 Normal Range 180 to 914 Indeterminate Range 145 to 180 Deficient Range <145 52 Please check labs this week 53 ADDITIONAL INFORMATION This test was developed and its performance characteristics determined by [facility] in a manner consistent with CLIA requirements. This test has not been cleared or approved by the U.S. Food and Drug Administration. 54 ADDITIONAL INFORMATION This test was developed and its performance characteristics determined by [facility] in a manner consistent with CLIA requirements. This test has not been cleared or approved by the U.S. Food and Drug Administration. 55 ADDITIONAL INFORMATION This test was developed and its performance characteristics determined by [facility] in a manner consistent with CLIA requirements. This test has not been cleared or approved by the U.S. Food and Drug Administration. Test Performed by: [facility] - [address] [address] 56 Specific serologic response to B. burgdorferi infection [...] 30 days of symptoms. Test Performed by: [facility] - [address] [address] 57 REFERENCE VALUE <15.0 (Negative) 58 REFERENCE VALUE <15.0 (Negative) Test Performed by: [facility] - [address] [address] 59 REFERENCE VALUE <1:80 (Negative) 60 Dense Fine Speckled Test Performed by: [facility] - [address] [address] 61 REFERENCE VALUE <30.0 (Negative) Test Performed by: [address] [address] 62 Test Performed by: [facility] - [address] [address] 63 Test Performed by: [address] [address] 64 REFERENCE VALUE <1.0 (Negative) 65 REFERENCE VALUE <1.0 (Negative) 66 REFERENCE VALUE <1.0 (Negative) 67 REFERENCE VALUE <1.0 (Negative) 68 REFERENCE VALUE <1.0 (Negative) 69 REFERENCE VALUE <1.0 (Negative) Test Performed by: [place] [address] 70 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 Suggest further testing for anti-myeloperoxidase (anti-MPO) antibodies, if clinically indicated. ADDITIONAL INFORMATION This test was developed and its performance characteristics determined by [facility] in a manner consistent with CLIA requirements. This test has not been cleared or approved by the U.S. Food and Drug Administration. Test Performed by: [place] [address] 71 Please check labs this week 72 Test Performed by: [place] [address] Procedures Description No Information Available Medical Devices Description No Information Available Encounters Type Date Location Provider Dx Diagnosis Office Visit 02/04/2019 Rheumatology Sacha Trujillo, M35.9 Systemic 11:20a [facility] involvement of connective tissue, unspecified Z79.899 Other senior care (current) drug therapy R73.9 Hyperglycemia, unspecified R20.8 Other disturbances of skin sensation E55.9 Vitamin D deficiency, unspecified Office Visit 11/13/2018 1:00p [facility] Nephrology Mabel Mata R76.0 Raised antibody MD Chago titer M35.9 Systemic involvement of connective tissue, unspecified Z79.899 Other terminologist (current) drug therapy Office Visit 10/26/2018 1:15p [facility] Dermatology Xochilt Beasley, L82.1 Other seborrheic MD keratosis L73.8 Other specified follicular disorders D23.71 Oth benign neoplasm skin/ right lower limb, including hip Office Visit 10/23/2018 1:00p [facility] Nephrology Mabel Anders, R53.83 Other fatigue M35.9 Systemic involvement of connective tissue, unspecified M79.10 Myalgia, unspecified site R06.00 Dyspnea, unspecified Z79.899 Other terminologist (current) drug therapy Office Visit 10/09/2018 11:40a Rheumatology Sacha M35.9 Systemic [facility] M.D. involvement of connective tissue, unspecified Z79.899 Other senior care (current) drug therapy D69.2 Other nonthrombocytopenic purpura R06.00 Dyspnea, unspecified Office Visit 09/10/2018 10:00a Rheumatology Sacha M79.10 Myalgia, [facility] M.D. unspecified site D69.2 Other nonthrombocytopenic purpura R53.83 Other fatigue R20.8 Other disturbances of skin sensation S40.261A Insect bite (nonvenomous) of right shoulder, init encntr R76.0 Raised antibody titer Assessments Date Code Description Provider 02/19/2019 G25.0 Essential tremor Mabel Anders MD 02/19/2019 R76.0 Raised antibody titer Mabel Anders MD 02/19/2019 M35.9 Systemic involvement of connective tissue, Mabel Anders MD unspecified 02/04/2019 M35.9 Systemic involvement of connective tissue, Sacha Trujillo M.D. unspecified 02/04/2019 Z79.899 Other terminologist (current) drug therapy Sacha Trujillo M.D. 02/04/2019 R73.9 Hyperglycemia, unspecified Sacha Trujillo M.D. 02/04/2019 R20.8 Other disturbances of skin sensation Sacha Trujillo M.D. 02/04/2019 E55.9 Vitamin D deficiency, unspecified Sacha Trujillo M.D. 11/13/2018 R76.0 Raised antibody titer Mabel Anders MD 11/13/2018 M35.9 Systemic involvement of connective tissue, Mabel Anders MD unspecified 11/13/2018 Z79.899 Other terminologist (current) drug therapy Mabel Anders MD 10/26/2018 [...] unspecified Mabel Anders MD 10/23/2018 Z79.899 Other senior care (current) drug therapy Mabel Anders MD 10/09/2018 M35.9 Systemic involvement of connective tissue, Sacha Trujillo M.D. unspecified 10/09/2018 Z79.899 Other senior care (current) drug therapy Sacha Trujillo M.D. 10/09/2018 [...] Sacha Trujillo M.D. at [facility]02/19/2019 - Mabel Anders MDG25.0 Essential wdvlaeJ80.0 Raised antibody gxfwdX95.9 Systemic involvement of connective tissue, unspecified Functional Status Description No Information Available Mental Status Description No Information Available Referrals Refer to Dr Reason for Referral Status Appt Date [facility] To evaluate for vasculitis, please Sent refer patient to [facility] vascul[facility] Center Dr. Fallon Dean [phone] [place] [address] [place] [id number] [phone] July El MD Please evaluate patient for nephritis, Sent 2018 history of hematuria and positive MPO antibody [address] [facility] [address] [phone] Xochilt Beasley MD Please evaluate and screen for vasculitis; Sent 2018 history of positive P ANCA and skin lesions [address] [facility], [place] [address] [phone]
--- NOTE | 2019-03-28 14:17 | UC ---
Lower Extremity/Ankle HPI - HPI Summary HPI Summary: 48 yo female presents with RIGHT foot injury. She tells me that about 1 hour [employer] she slipped on a step and inverted her right foot and ankle. Since that time has had lateral ankle pain and swelling. Hx of 5th MT fx with hardward - no pain there today. Denies numbness or tingling. Ambulatory without assistance. - History of Current Complaint Stated Complaint: R FOOT INJURY Time Seen by Provider: 03/28/19 14:16 Hx Obtained From: Patient Hx Last Menstrual Period: 03/21/18 Onset/Duration: Sudden Onset Severity Initially: Mild Severity Currently: Mild Pain Intensity: 3 Pain Scale Used: 0-10 Numeric - Allergies/Home Medications Allergies/Adverse Reactions: Allergies Allergy/AdvReac Type Severity Reaction Status Date / Time latex Allergy Itching Verified 03/28/19 14:34 Home Medications: Home Medications DULoxetine DR CAP* [Cymbalta CAP*] 1 cap PO BEDTIME 03/28/19 [History Confirmed 03/28/19] PMH/Surg Hx/FS Hx/Imm Hx Neurological History: Migraine Psychological History: Anxiety, Depression Other History Of: Negative For: Anticoagulant Therapy - Surgical History Surgical History: Yes Surgery Procedure, Year, and Place: right knee scopy, right ankle sx, ovarian cyst removal, ovarian fibroid removal, "endometriosis removal" - Family History Known Family History: Positive: Cardiac Disease - Social History Occupation: Employed Full-time Lives: With Family Alcohol Use: None Substance Use Type: None Smoking Status (MU): Never Smoked Tobacco Have You Smoked in the Last Year: No Review of Systems All Other Systems Reviewed And Are Negative: No Constitutional: Positive: Negative Skin: Positive: Negative Respiratory: Positive: Negative Cardiovascular: Positive: Negative Neurovascular: Positive: Negative Musculoskeletal: Positive: Other: - Right foot injury Neurological/Mental Status: Positive: Negative Psychological: Positive: Negative Physical Exam - Summary Physical Exam Summary: GENERAL: NAD. WDWN. No pain distress. SKIN: No rashes, sores, lesions, or open wounds. CHEST: No accessory muscle use. Breathing comfortably and in no distress. CV: Pulses intact PT and DP. Cap refill <2seconds MSK: RIGHT ANKLE: Mild edema lateral aspect. Mild TTP about ATFL. FROM. Strength 5/5. Negative talar tilt. No increased laxity. Negative [place] test. No foot tenderness or ttp at 5th MT. NEURO: Alert. Sensations intact and symmetric B/L LEs PSYCH: Age appropriate behavior. Triage Information Reviewed: Yes Vital Signs: Vital Signs: Temp Pulse Resp BP Pulse Ox 98.2 F 99 18 138/79 98 03/28/19 14:28 03/28/19 14:28 03/28/19 14:28 03/28/19 14:28 03/28/19 14:28 Vital Signs Reviewed: Yes Diagnostics - Radiology Ankle and foot XR Radiology Interpretation Completed By: Radiologist Summary of Radiographic Findings: IMPRESSION: No fracture identified. Lateral soft tissue swelling. Lower Extremity Course/Dx - Course Course Of Treatment: XR as above. Suspect sprain. Provided with crutches and gel ankle splint. Advised to RICE and take tylenol/ibuprofen as directed for discomfort. Recheck if symptoms do not improve - Differential Dx/Diagnosis Provider Diagnosis: Ankle sprain Discharge ED - Sign-Out/Discharge Documenting (check all that apply): Patient Departure All imaging exams completed and their final reports reviewed: Yes - Discharge Plan Condition: Stable Disposition: HOME Patient Education Materials: Ankle Sprain (ED) Referrals: Josiah Smith MD [Primary Care Provider] - Additional Instructions: If you develop a fever, shortness of breath, chest pain, new or worsening symptoms - please call your PCP or go to the ED immediately. 1) Rest, Ice, and elevate your ankle to reduce pain and swelling 2) May take tylenol/ibuprofen as directed for discomfort 3) If your symptoms do not improve within 5-7 days , please be rechecked - Billing Disposition and Condition Condition: STABLE Disposition: Home - Attestation Statements Provider Attestation: This patient was not seen by me. I was available fro consult. Chart reviewed. MARSHAL
[2019-03-28 14:34] VITALS: BP 138/79
== END 2019-03-28 15:34 | disposition home or self-care (01) ==
LOC: UCEAST 14:04
DX: S93.401A Sprain of unspecified ligament of right ankle, initial encounter (principal); M79.89 Other specified soft tissue disorders; F41.9 Anxiety disorder, unspecified; F32.9 Major depressive disorder, single episode, unspecified; Z91.040 Latex allergy status; Z79.899 Other long term (current) drug therapy; X50.0XXA Overexertion from strenuous movement or load, initial encounter; Y92.9 Unspecified place or not applicable
CPT/HCPCS: 99212; G0463